=== PATIENT | male | born 1965 | race Caucasian/White ===

== ENCOUNTER 2018-03-24 11:18 | Emergency (ER) | payer OTHER ==
[~2018-03-24] VITALS: Ht 172.7 cm; Wt 74.8 kg
[2018-03-24] MEDS ORDERED: METF500C PO (11:51)
[2018-03-24] MEDS ORDERED: GLIP10 PO (11:51)
[2018-03-24 12:26] LABS: BASOPHILS ABSOLUTE AUTO 0.02 K/mm3 (0.00-0.23); BASOPHILS PERCENT AUTO 0 % (0-2); EOSINOPHILS ABSOLUTE AUTO 0.21 K/mm3 (0.00-0.68); EOSINOPHILS PERCENT AUTO 3 % (0-6); Hematocrit 33.6 % (37.0-53.0); Hemoglobin 11.7 g/dL (13.5-17.5); IMMATURE GRAN ABSOLUTE AUTO 0.04 K/mm3 (0.00-0.10); IMMATURE GRAN PERCENT AUTO 1 % (0-1); LYMPHOCYTES ABSOLUTE AUTO 1.52 K/mm3 (0.84-5.20); LYMPHOCYTES PERCENT AUTO 19 % (21-46); MONOCYTES ABSOLUTE AUTO 0.38 K/mm3 (0.16-1.47); MONOCYTES PERCENT AUTO 5 % (4-13); Mean Corpuscular HGB 30.9 pg (26.0-34.0); Mean Corpuscular HGB Conc 34.8 g/dL (31.5-36.5); Mean Corpuscular Volume 89 fL (80-100); Mean Platelet Volume 10.1 fL (9.1-12.4); NEUTROPHILS ABSOLUTE AUTO 5.79 K/mm3 (1.96-9.15); NEUTROPHILS PERCENT AUTO 73 % (41-73); Platelet Count 238 K/mm3 (150-400); RDW Coefficient Variation 12.6 % (11.7-14.2); RDW Standard Deviation 40.7 fL (35.1-46.3); Red Blood Cell Count 3.79 M/mm3 (4.30-5.90); White Blood Cell Count 7.96 K/mm3 (4.00-11.30)
[2018-03-24 12:31] LABS: Base Excess Venous 8.9 mmol/L; Bicarbonate Venous 30.1 mmol/L (24.0-30.0); PCO2 Venous 63.7 mmHg (38-42); pH Blood Venous 7.34 (7.34-7.37)
[2018-03-24 12:46] LABS: Alanine Aminotransfer (ALT/SGP 23 U/L (12-78); Albumin, Blood 2.6 g/dL (3.4-5.0); Albumin/Globulin Ratio 0.6 (0.8-1.8); Alk Phos 116 U/L (50-136); Anion Gap 6 mmol/L (6-16); Aspartate Aminotrans (AST/SGOT 14 U/L (12-37); Bilirubin, Total 0.3 mg/dL (0.1-1.0); Blood Urea Nitrogen 30 mg/dL (8-24); Bun/Creatinine Ratio 23.8 (12.0-20.0); CO2, Blood 33 mmol/L (21-32); Calcium, Blood 9.1 mg/dL (8.5-10.1); Chloride, Blood 97 mmol/L (98-108); Creatinine, Blood 1.26 mg/dL (0.60-1.20); Globulin, Blood 4.1 g/dL (2.2-4.0); Glomerular Filtration Rate >60 (60-); Glucose, Blood 437 mg/dL (70-99); Potassium, Blood 4.5 mmol/L (3.5-5.5); Sodium, Blood 136 mmol/L (136-145); Total Protein, Blood 6.7 g/dL (6.4-8.2)
[2018-03-24] MEDS ORDERED: ATOR80 PO (13:39)
[2018-03-24] MEDS ORDERED: ASPI81CH PO (13:40)
[2018-03-24] MEDS ORDERED: LISI5 PO (13:40)
[2018-03-24] MEDS ORDERED: ALBU90OI INH (13:40)
[2018-03-24] MEDS ORDERED: GLIP5 PO (13:49)
[2018-03-24] MEDS ORDERED: Glucophage1000 MG PO (13:49)
[2018-03-24] MEDS ORDERED: Prinivil10 MG PO (13:49)
[2018-03-24] MEDS ORDERED: LOVA40 PO (13:49)
[2018-03-24] MEDS ORDERED: ADULT ASPIRIN R81 MG PO (13:49)
== END 2018-03-24 13:57 | disposition home or self-care (01) ==
LOC: ER 11:18
PROVIDERS: Physician Assistant
DX: E11.65 Type 2 diabetes mellitus with hyperglycemia (principal); E11.319 Type 2 diabetes mellitus with unspecified diabetic retinopathy without macular edema; E11.40 Type 2 diabetes mellitus with diabetic neuropathy, unspecified; Z79.84 Long term (current) use of oral hypoglycemic drugs; Z79.899 Other long term (current) drug therapy; I10 Essential (primary) hypertension
CPT/HCPCS: 71046; 80053; 82803; 82947; 85025; 93005; 93010; 96361; 96374; 99284; J0360; J7030

== ENCOUNTER → 2018-05-13 | Outpatient (CLI) | payer OTHER ==
[~2018-05-13] MED LIST: ADULT ASPIRIN R81 MG PO; ALBU90OI INH; ASPI81CH PO; ATOR80 PO; GLIP10 PO; GLIP5 PO; Glucophage1000 MG PO; LISI5 PO; LOVA40 PO; METF500C PO; Prinivil10 MG PO
[2018-05-13 13:00] LABS: BASOPHILS ABSOLUTE AUTO 0.03 K/mm3 (0.00-0.23); BASOPHILS PERCENT AUTO 0 % (0-2); EOSINOPHILS ABSOLUTE AUTO 0.26 K/mm3 (0.00-0.68); EOSINOPHILS PERCENT AUTO 3 % (0-6); Hematocrit 34.6 % (37.0-53.0); Hemoglobin 12.4 g/dL (13.5-17.5); IMMATURE GRAN ABSOLUTE AUTO 0.04 K/mm3 (0.00-0.10); IMMATURE GRAN PERCENT AUTO 1 % (0-1); LYMPHOCYTES ABSOLUTE AUTO 1.78 K/mm3 (0.84-5.20); LYMPHOCYTES PERCENT AUTO 21 % (21-46); MONOCYTES ABSOLUTE AUTO 0.38 K/mm3 (0.16-1.47); MONOCYTES PERCENT AUTO 5 % (4-13); Mean Corpuscular HGB 30.7 pg (26.0-34.0); Mean Corpuscular HGB Conc 35.8 g/dL (31.5-36.5); Mean Corpuscular Volume 86 fL (80-100); Mean Platelet Volume 10.6 fL (9.1-12.4); NEUTROPHILS ABSOLUTE AUTO 5.81 K/mm3 (1.96-9.15); NEUTROPHILS PERCENT AUTO 70 % (41-73); Platelet Count 273 K/mm3 (150-400); RDW Coefficient Variation 12.4 % (11.7-14.2); RDW Standard Deviation 38.8 fL (35.1-46.3); Red Blood Cell Count 4.04 M/mm3 (4.30-5.90)
[2018-05-13 13:14] LABS: Albumin, Blood 2.8 g/dL (3.4-5.0); Albumin/Globulin Ratio 0.7 (0.8-1.8); Bilirubin, Total 0.3 mg/dL (0.1-1.0); Bun/Creatinine Ratio 15.2 (12.0-20.0); Calcium, Blood 8.8 mg/dL (8.5-10.1); Creatinine, Blood 1.65 mg/dL (0.60-1.20); Globulin, Blood 4.2 g/dL (2.2-4.0); Potassium, Blood 4.6 mmol/L (3.5-5.5)
== END ==
LOC: LAB SHORT 12:56 → LAB EV 12:56
PROVIDERS: Physician Assistant
DX: R73.9 Hyperglycemia, unspecified (principal)
CPT/HCPCS: 80053; 85025

== ENCOUNTER 2018-05-15 10:33 | Emergency (ER) | payer OTHER ==
[~2018-05-15] VITALS: Ht 177.8 cm; Wt 70.3 kg
[2018-05-15 11:26] LABS: BASOPHILS ABSOLUTE AUTO 0.04 K/mm3 (0.00-0.23); BASOPHILS PERCENT AUTO 0 % (0-2); EOSINOPHILS ABSOLUTE AUTO 0.01 K/mm3 (0.00-0.68); EOSINOPHILS PERCENT AUTO 0 % (0-6); Hemoglobin 14.8 g/dL (13.5-17.5); IMMATURE GRAN ABSOLUTE AUTO 0.06 K/mm3 (0.00-0.10); IMMATURE GRAN PERCENT AUTO 1 % (0-1); LYMPHOCYTES ABSOLUTE AUTO 0.93 K/mm3 (0.84-5.20); LYMPHOCYTES PERCENT AUTO 7 % (21-46); MONOCYTES ABSOLUTE AUTO 0.28 K/mm3 (0.16-1.47); MONOCYTES PERCENT AUTO 2 % (4-13); Mean Corpuscular HGB 30.4 pg (26.0-34.0); Mean Corpuscular HGB Conc 35.2 g/dL (31.5-36.5); Mean Corpuscular Volume 86 fL (80-100); Mean Platelet Volume 11.1 fL (9.1-12.4); NEUTROPHILS ABSOLUTE AUTO 11.51 K/mm3 (1.96-9.15); NEUTROPHILS PERCENT AUTO 90 % (41-73); Platelet Count 300 K/mm3 (150-400); RDW Coefficient Variation 12.1 % (11.7-14.2); RDW Standard Deviation 38.5 fL (35.1-46.3); Red Blood Cell Count 4.87 M/mm3 (4.30-5.90); White Blood Cell Count 12.83 K/mm3 (4.00-11.30)
[2018-05-15 11:41] LABS: Albumin/Globulin Ratio 0.6 (0.8-1.8); Bilirubin, Total 0.7 mg/dL (0.1-1.0); Bun/Creatinine Ratio 27.3 (12.0-20.0); Calcium, Blood 11.1 mg/dL (8.5-10.1); Creatinine, Blood 1.5 mg/dL (0.60-1.20); Globulin, Blood 4.7 g/dL (2.2-4.0); Potassium, Blood 4.9 mmol/L (3.5-5.5); Total Protein, Blood 7.7 g/dL (6.4-8.2); Troponin I 0.019 ng/mL (0.000-0.040)
== END 2018-05-15 17:44 | disposition short-term general hospital (02) ==
LOC: ER 10:33
PROVIDERS: Emergency Medicine
DX: E11.65 Type 2 diabetes mellitus with hyperglycemia (principal); K92.0 Hematemesis; E86.0 Dehydration; R07.9 Chest pain, unspecified; Z79.899 Other long term (current) drug therapy; Z79.84 Long term (current) use of oral hypoglycemic drugs; Z79.82 Long term (current) use of aspirin
CPT/HCPCS: 36415; 71046; 80053; 82947; 83690; 84484; 85025; 86850; 86900; 86901; 93005; 93010; 96361; 96365; 96366; 96375; 96376; 99285-25; C9113; J0360; J1815; J2405; J3490; J7030; J7120